=== PATIENT | female | born 1995 | race African-American/Black ===

== ENCOUNTER 2023-10-04 23:05 | Emergency (ER) | payer OTHER ==
[2023-10-04 23:12] VITALS: BMI 24.0
[2023-10-04] MEDS ORDERED: HYDROmorphone HCl 2 MG/ML VIAL IVPUSH ONE (23:45)
[2023-10-04] MEDS ORDERED: LACTATED RINGERS SOLUTION 1000 ML INFUS.BAG IV ONE (23:45)
[2023-10-05] MEDS ORDERED: HYDROmorphone HCl 2 MG/ML VIAL ONE ×3 (00:10→04:18)
[2023-10-05 01:10] LABS: BASO % 1.8 % (0-2.0); EOS % 0.6 % (0-4.5); HEMATOCRIT 26.6 % (32.4-45.2); HEMOGLOBIN 9.2 GM/dL (10.7-15.3); LYMPH % 39.3 % (8-40); MCH 37.9 pg (25.7-33.7); MCHC 34.5 g/dl (32.0-36.0); MEAN CELL VOLUME 109.9 fl (80-96); MEAN PLT VOLUME 7.3 fl (7.5-11.1); MONO % 7.5 % (3.8-10.2); NEUT % 50.8 % (42.8-82.8); PLATELET COUNT 399 10^3/uL (134-434); RBC 2.42 M/mm3 (3.60-5.2); RDW 19.1 % (11.6-15.6); RETICULOCYTES 7.75 % (0.5-1.5)
[2023-10-05 01:32] LABS: POTASSIUM 4.1 mmol/L (3.5-5.1)
[2023-10-05 01:34] LABS: CALCIUM 8.7 mg/dL (8.5-10.1)
[2023-10-05 01:35] LABS: ALBUMIN 3.8 g/dl (3.4-5.0); BLOOD UREA NITROGEN 7.2 mg/dL (7-18)
[2023-10-05 01:37] LABS: CREATININE 0.5 mg/dL (0.55-1.3)
[2023-10-05 01:40] LABS: BILIRUBIN,TOTAL 1.3 mg/dL (0.2-1); TOT PROT 7.7 g/dl (6.4-8.2)
[2023-10-05] MEDS ORDERED: HYDROmorphone HCl 2 MG/ML VIAL IVPUSH ONE ×2 (01:49→04:13)
[2023-10-05 03:27] VITALS: BP 124/76; PULSE 77; RESP 18; TEMP 98.1
[2023-10-05] MEDS ORDERED: hydrOXYzine HCL 100 MG/2 ML VIAL IM ONE (05:07)
[2023-10-05] MEDS ORDERED: hydrOXYzine HCL 50 MG/ML VIAL IM ONE (05:12)
[2023-10-05 05:37] LABS: ANISOCYTOSIS 2+; MACROCYTOSIS 1+; OVALOCYTE 1+; TARGET CELLS 2+
== END 2023-10-05 07:18 | disposition home or self-care (01) ==
LOC: JER 23:05
PROC: 3E033GC Introduction of Other Therapeutic Substance into Peripheral Vein, Percutaneous Approach (ICD-10-PCS; principal; 2023-10-05)
PROC: 3E033GC Introduction of Other Therapeutic Substance into Peripheral Vein, Percutaneous Approach (ICD-10-PCS; 2023-10-05)
PROC: 3E033GC Introduction of Other Therapeutic Substance into Peripheral Vein, Percutaneous Approach (ICD-10-PCS; 2023-10-05)
PROC: 3E033GC Introduction of Other Therapeutic Substance into Peripheral Vein, Percutaneous Approach (ICD-10-PCS; 2023-10-05)
PROC: 3E033GC Introduction of Other Therapeutic Substance into Peripheral Vein, Percutaneous Approach (ICD-10-PCS; 2023-10-05)
PROC: 3E033GC Introduction of Other Therapeutic Substance into Peripheral Vein, Percutaneous Approach (ICD-10-PCS; 2023-10-05)
PROC: 3E023NZ Introduction of Analgesics, Hypnotics, Sedatives into Muscle, Percutaneous Approach (ICD-10-PCS; 2023-10-05)
DX: D57.219 Sickle-cell/Hb-C disease with crisis, unspecified (principal); M79.10 Myalgia, unspecified site; M79.621 Pain in right upper arm; M79.622 Pain in left upper arm; M79.661 Pain in right lower leg; M79.662 Pain in left lower leg; M25.551 Pain in right hip; M25.552 Pain in left hip
CPT/HCPCS: 36415; 80053; 83540; 83550; 83615; 84703; 85025; 85045; 96372; 96374; 96375; 96376; 99284-25

== ENCOUNTER 2024-08-21 02:55 | Emergency (ER) | payer OTHER ==
[2024-08-21 03:04] VITALS: BMI 24.3
[2024-08-21] MEDS ORDERED: HYDROmorphone HCl 2 MG/ML VIAL ONE ×2 (04:13→05:50)
[2024-08-21 04:36] LABS: HEMOGLOBIN 8.7 GM/dL (10.7-15.3); MONO % 7.3 % (3.8-10.2); RBC 2.19 M/mm3 (3.60-5.2)
[2024-08-21 04:40] LABS: BASO % 1.2 % (0-2.0); EOS % 1.3 % (0-4.5); HEMATOCRIT 25.1 % (32.4-45.2); LYMPH % 39.3 % (8-40); MCH 39.9 pg (25.7-33.7); MCHC 34.7 g/dl (32.0-36.0); MEAN CELL VOLUME 114.9 fl (80-96); NEUT % 50.9 % (42.8-82.8); PLATELET COUNT 733 10^3/uL (134-434); RDW 15.8 % (11.6-15.6); RETICULOCYTES 5.73 % (0.5-1.5); WHITE BLOOD COUNT 8.1 K/mm3 (4.0-10.0)
[2024-08-21] MEDS: HYDROmorphone HCl 2 MG/ML VIAL IVPUSH ONE ×2 (04:43→06:00)
[2024-08-21 05:26] LABS: POTASSIUM 4.2 mmol/L (3.5-5.1)
[2024-08-21 05:28] LABS: ALBUMIN 3.4 g/dl (3.4-5.0); BLOOD UREA NITROGEN 6.1 mg/dL (7-18)
[2024-08-21 05:31] LABS: CREATININE 0.5 mg/dL (0.55-1.3)
[2024-08-21 05:33] LABS: BILIRUBIN,TOTAL 0.9 mg/dL (0.2-1); TOT PROT 6.8 g/dl (6.4-8.2)
[2024-08-21] MEDS ORDERED: FAMOTIDINE 10 MG/ML VIAL IVPB ONE (06:05)
[2024-08-21] MEDS: FAMOTIDINE 20 MG/50 ML IVPB 20 MG/50 ML MG IVPB ONE (06:11)
[2024-08-21 06:28] VITALS: RESP 18; TEMP 98.4
[2024-08-21 08:15] VITALS: BP 124/73; PULSE 63
== END 2024-08-21 08:15 | disposition home or self-care (01) ==
LOC: JER 02:55
PROC: 3E033GC Introduction of Other Therapeutic Substance into Peripheral Vein, Percutaneous Approach (ICD-10-PCS; principal; 2024-08-21)
PROC: 3E033GC Introduction of Other Therapeutic Substance into Peripheral Vein, Percutaneous Approach (ICD-10-PCS; 2024-08-21)
PROC: 3E033GC Introduction of Other Therapeutic Substance into Peripheral Vein, Percutaneous Approach (ICD-10-PCS; 2024-08-21)
PROC: 3E033NZ Introduction of Analgesics, Hypnotics, Sedatives into Peripheral Vein, Percutaneous Approach (ICD-10-PCS; 2024-08-21)
PROC: 3E033NZ Introduction of Analgesics, Hypnotics, Sedatives into Peripheral Vein, Percutaneous Approach (ICD-10-PCS; 2024-08-21)
DX: D57.00 Hb-SS disease with crisis, unspecified (principal); M54.9 Dorsalgia, unspecified; Z20.822 Contact with and (suspected) exposure to COVID-19
CPT/HCPCS: 0241U-QW; 36415; 80053; 83540; 83550; 83615; 84703; 85025; 85045; 99284-25